=== PATIENT | male | born 1955 ===

== ENCOUNTER 2019-10-28 18:43 | Inpatient (IN) ==
[2019-10-28] MEDS ORDERED: ALBUTEROL 2.5 MG/3 ML NEB RESP TX PRN (22:57)
[2019-10-28] MEDS ORDERED: ACETAMINOPHEN 325 MG TABLET PO PRN (22:57)
[2019-10-28] MEDS ORDERED: GLUCAGON 1 MG VIAL IM PRN (23:05)
[2019-10-28 23:11] LABS: ABG Base Excess 3.7 MMOL/L (-2.5-2.5); ABG HCO3 25.9 MMOL/L (20-26); ABG Oxygen Saturation 96.7 % (95-100); ABG PCO2 29.7 MM HG (35-48); ABG PH 7.558 (7.35-7.45); ABG PO2 81.7 MM HG (80-95); ABG TCO2 26.8 MMOL/L (23-27)
[2019-10-28 23:21] LABS: Basophils % 0.1 % (0.0-0.8); Hematocrit 23.1 VOL% (42.0-52.0); Hemoglobin 7.6 GM/DL (14.0-18.0); Immature Granulocytes % 0.2 %; Immature Granulocytes Absolute 0.02 #; Lymphocytes # 1.3 10*3/uL (1.4-4.0); Lymphocytes % 15.1 % (21.2-54.2); Mean Corpuscular HGB Conc 32.9 GM/DL (32-36); Mean Corpuscular Volume 85.9 FL (87-102); Mean Platelet Volume 10.3 FL (9.6-12.0); Monocytes % 5.9 % (1.7-12.7); Neutrophils % 78.7 % (38.7-73.9); Platelet Count 217 T/CUMM (130-400); Red Blood Count 2.69 MC/CUMM (3.8-5.5); Red Cell Distribution Width 16.9 % (9.3-17.3); White Blood Count 8.3 T/CUMM (4-12)
[2019-10-28 23:44] LABS: Alanine Aminotransferase 17 U/L (16-61); Albumin 1.6 G/DL (3.4-5.0); Alkaline Phosphatase 83 U/L (45-117); Aspartate Amino Transferase 35 U/L (0-37); Bilirubin,Total < 0.39 MG/DL (0.2-1.0); Blood Urea Nitrogen 15 MG/DL (7-18); Calcium 8.3 MG/DL (8.5-10.1); Estimated Glom Filtration Rate 21 ML/MIN; Glucose 131 MG/DL (74-106); Osmolality,Calculated 277.7 MOS/KG (273-304); Total Protein 5.8 G/DL (6.4-8.3)
[2019-10-28 23:45] LABS: Apearance,Urine CLOUDY (Clear); Bacteria,Urine Moderate /HPF (Few); Bilirubin,Urine Negative (Negative); Blood, Urine Small mg/dL (Negative); Glucose,Urine (UA) 150 mg/dL (Negative); Granular Casts,Urine 14 /LPF (0-1); Hyaline Casts,Urine 42 /LPF (0-3); Ketones,Urine Negative (Negative); Mucus,Urine Occasional /LPF (Occasional); Nitrite,Urine Negative (Negative); Protein,Urine >=500 MG/DL; RBC,Urine 28 /HPF (0-4); Squamous Epithelial Cell,Urine Occasional /HPF (0-10); Urine Color Amber (Yellow); Urine Specific Gravity 1.034 (1.001-1.035); Urine Urobilinogen < 2.0 EU/DL (0.2-1.0); WBC,Urine 67 /HPF (0-6)
[2019-10-28 23:46] LABS: CKMB % 8.4 %
[2019-10-28 23:47] LABS: Troponin I 0.131 NG/ML (0.00-0.045)
[2019-10-29] MEDS: fentaNYL INJ 1,250 MCG in SODIUM CHLORIDE 0.9% 225 ML IV PRN ×4 (00:32→23:01)
[2019-10-29 00:40] LABS: INR 1.2; Partial Thromboplastin Time 31.9 SECS (23.9-33.8)
[2019-10-29] MEDS: MIDAZOLAM 100 MG in SODIUM CHLORIDE 0.9% 80 ML IV PRN (00:43)
[2019-10-29] MEDS: DOPamine 800 MG/250 ML PREMIX IV SCH ×3 (00:44→22:58)
[2019-10-29] MEDS: ENOXAPARIN 30 MG/0.3 ML SYRINGE SUBCUT SCH ×2 (01:22→20:28)
[2019-10-29] MEDS: PANTOPRAZOLE 40 MG VIAL IV SCH ×2 (01:23→23:23)
[2019-10-29] MEDS ORDERED: INSULIN REGULAR 100 UNIT/ML SUBCUT SCH ×2 (02:00)
[2019-10-29] MEDS: CISATRACURIUM 10 MG/5 ML VIAL IV PRN ×2 (02:41→20:33)
[2019-10-29 04:47] LABS: ABG Base Excess 4.7 MMOL/L (-2.5-2.5); ABG HCO3 25.1 MMOL/L (20-26); ABG Oxygen Saturation 98.6 % (95-100); ABG PCO2 22.5 MM HG (35-48); ABG PO2 108.3 MM HG (80-95); ABG TCO2 25.8 MMOL/L (23-27)
[2019-10-29 04:49] LABS: ABG PH 7.665 (7.35-7.45)
[2019-10-29] MEDS: INSULIN REGULAR 100 UNIT/ML IV SCH ×3 (04:49→20:27)
[2019-10-29] MEDS: MINERAL OIL/PETROLATUM OPH OINT 3.5 GM TUBE BOTH EYES SCH ×4 (04:57→20:33)
[2019-10-29 05:51] LABS: Calcium 7.9 MG/DL (8.5-10.1); Osmolality,Calculated 277.5 MOS/KG (273-304)
[2019-10-29 05:56] LABS: Basophils % 0.1 % (0.0-0.8); Hemoglobin 7.3 GM/DL (14.0-18.0); Immature Granulocytes % 0.3 %; Immature Granulocytes Absolute 0.03 #; Lymphocytes # 1.6 10*3/uL (1.4-4.0); Lymphocytes % 17.5 % (21.2-54.2); Mean Corpuscular HGB Conc 33.2 GM/DL (32-36); Mean Platelet Volume 10.8 FL (9.6-12.0); Monocytes % 6.2 % (1.7-12.7); Neutrophils % 75.9 % (38.7-73.9); Platelet Count 191 T/CUMM (130-400); Red Blood Count 2.53 MC/CUMM (3.8-5.5); Red Cell Distribution Width 16.8 % (9.3-17.3); White Blood Count 8.9 T/CUMM (4-12)
[2019-10-29 06:22] LABS: Band Neutrophils 1 % (0-10); Hypochromasia 2+; Lymphocytes 13 % (20-55); Microcytosis 1+; Ovalocytes Slight; Platelet Estimate Adequate; Segmented Neutrophils 82 % (50-85); Total Cells Counted 100
[2019-10-29 06:37] LABS: INR 1.3; PT Patient Result 13.5 SECS (9.8-11.9); Partial Thromboplastin Time 34.7 SECS (23.9-33.8)
[2019-10-29 06:47] LABS: CKMB % 10.1 %
[2019-10-29 06:48] LABS: Troponin I 0.107 NG/ML (0.00-0.045)
[2019-10-29] MEDS: PIPERACILLIN/TAZOBACTAM 3,375 MG in SODIUM CHLORIDE 0.9% 100 ML IV SCH ×2 (08:54→18:34)
[2019-10-29 11:32] LABS: Basophils % 0.1 % (0.0-0.8); Eosinophils % 0.1 % (0.00-10.9); Hematocrit 19.6 VOL% (42.0-52.0); Hemoglobin 6.5 GM/DL (14.0-18.0); Immature Granulocytes % 0.7 %; Immature Granulocytes Absolute 0.06 #; Lymphocytes # 2.2 10*3/uL (1.4-4.0); Lymphocytes % 25.8 % (21.2-54.2); Mean Corpuscular HGB Conc 33.2 GM/DL (32-36); Mean Platelet Volume 10.3 FL (9.6-12.0); Monocytes % 4.9 % (1.7-12.7); Neutrophils % 68.4 % (38.7-73.9); Platelet Count 162 T/CUMM (130-400); Red Blood Count 2.28 MC/CUMM (3.8-5.5); Red Cell Distribution Width 16.9 % (9.3-17.3); White Blood Count 8.4 T/CUMM (4-12)
[2019-10-29 11:48] LABS: INR 1.3; PT Patient Result 13.5 SECS (9.8-11.9); Partial Thromboplastin Time 33.6 SECS (23.9-33.8)
[2019-10-29 11:55] LABS: CKMB % 10.8 %
[2019-10-29 11:59] LABS: Troponin I 0.087 NG/ML (0.00-0.045)
[2019-10-29 12:04] LABS: Calcium 7.7 MG/DL (8.5-10.1); Osmolality,Calculated 276.4 MOS/KG (273-304)
[2019-10-29] MEDS: DEXTROSE 50% 25 GM/50 ML VIAL IV PRN ×2 (12:13→16:03)
[2019-10-29] MEDS: INSULIN REGULAR 100 UNIT/ML SUBCUT SCH ×2 (12:20→16:02)
[2019-10-29 12:38] LABS: Band Neutrophils 2 % (0-10); Hypochromasia 2+; Lymphocytes 25 % (20-55); Microcytosis 1+; Platelet Estimate Adequate; Segmented Neutrophils 72 % (50-85); Total Cells Counted 100
[2019-10-29] MEDS ORDERED: MAGNESIUM SULF RIDER 4 GM in PREMIX 1 EACH IV ONE (12:59)
[2019-10-29] MEDS: MAGNESIUM SULF RIDER 2 GM in PREMIX 1 EACH IV SCH ×2 (14:02→15:42)
[2019-10-29 14:08] LABS: Hepatitis B Core IgM Quant 0.21 Index; Hepatitis B Surface Ag Quant 0.44 Index; Hepatitis B Surface Ag Result Negative (Negative); Hepatitis C Virus Ab Quant 0.09 Index; Hepatitis C Virus Ab Result Negative (Negative)
[2019-10-29] MEDS: POTASSIUM CHLORIDE RIDER 20 MEQ in PREMIX 1 EACH IV SCH ×3 (14:41→18:33)
[2019-10-29 17:18] LABS: Basophils % 0.2 % (0.0-0.8); Eosinophils % 0.2 % (0.00-10.9); Hematocrit 23.6 VOL% (42.0-52.0); Hemoglobin 7.7 GM/DL (14.0-18.0); Immature Granulocytes % 0.6 %; Immature Granulocytes Absolute 0.08 #; Lymphocytes # 2.3 10*3/uL (1.4-4.0); Mean Corpuscular HGB Conc 32.6 GM/DL (32-36); Mean Corpuscular Volume 86.1 FL (87-102); Mean Platelet Volume 10.4 FL (9.6-12.0); Monocytes % 3.4 % (1.7-12.7); Neutrophils % 79.6 % (38.7-73.9); Platelet Count 213 T/CUMM (130-400); Red Blood Count 2.74 MC/CUMM (3.8-5.5); Red Cell Distribution Width 17.4 % (9.3-17.3); White Blood Count 14.5 T/CUMM (4-12)
[2019-10-29] MEDS: HYDROCORTISONE 100 MG VIAL IV SCH ×2 (17:27→23:25)
[2019-10-29] MEDS: DEXTROSE 10% 500 ML IV SCH (17:27)
[2019-10-29 17:30] LABS: INR 1.3; PT Patient Result 13.7 SECS (9.8-11.9); Partial Thromboplastin Time 35.9 SECS (23.9-33.8)
[2019-10-29 17:45] LABS: CKMB % 11.8 %
[2019-10-29 17:50] LABS: Osmolality,Calculated 278.5 MOS/KG (273-304)
[2019-10-29 18:44] LABS: Hypochromasia 2+; Lymphocytes 15 % (20-55); Segmented Neutrophils 84 % (50-85); Total Cells Counted 100
[2019-10-29 18:45] LABS: Macrocytosis 1+; Platelet Estimate Adequate; Polychromasia 1+
[2019-10-29 22:58] LABS: Basophils % 0.1 % (0.0-0.8); Eosinophils % 0.1 % (0.00-10.9); Hemoglobin 8.3 GM/DL (14.0-18.0); Immature Granulocytes % 0.4 %; Immature Granulocytes Absolute 0.07 #; Lymphocytes # 1.2 10*3/uL (1.4-4.0); Lymphocytes % 7.9 % (21.2-54.2); Mean Corpuscular HGB Conc 33.2 GM/DL (32-36); Mean Corpuscular Volume 85.3 FL (87-102); Mean Platelet Volume 10.5 FL (9.6-12.0); Monocytes % 1.8 % (1.7-12.7); Neutrophils % 89.7 % (38.7-73.9); Platelet Count 225 T/CUMM (130-400); Red Blood Count 2.93 MC/CUMM (3.8-5.5); Red Cell Distribution Width 17.4 % (9.3-17.3); White Blood Count 15.8 T/CUMM (4-12)
[2019-10-29 23:09] LABS: INR 1.3; PT Patient Result 13.7 SECS (9.8-11.9); Partial Thromboplastin Time 36.5 SECS (23.9-33.8)
[2019-10-29 23:19] LABS: Calcium 8.1 MG/DL (8.5-10.1); Osmolality,Calculated 274.8 MOS/KG (273-304)
[2019-10-29 23:33] LABS: CKMB % 11.4 %
[2019-10-29 23:34] LABS: Troponin I 0.243 NG/ML (0.00-0.045)
[2019-10-30] MEDS: INSULIN REGULAR 100 UNIT/ML IV SCH ×6 (00:32→11:59)
[2019-10-30] MEDS: DEXTROSE 10% 500 ML IV SCH ×2 (03:17→13:31)
[2019-10-30 04:42] LABS: ABG Base Excess 2.4 MMOL/L (-2.5-2.5); ABG HCO3 24.4 MMOL/L (20-26); ABG Oxygen Saturation 98.4 % (95-100); ABG PCO2 27.9 MM HG (35-48); ABG PH 7.559 (7.35-7.45); ABG PO2 114.1 MM HG (80-95); ABG TCO2 25.2 MMOL/L (23-27)
[2019-10-30 05:04] LABS: Basophils % 0.1 % (0.0-0.8); Hematocrit 23.4 VOL% (42.0-52.0); Immature Granulocytes % 0.6 %; Immature Granulocytes Absolute 0.09 #; Lymphocytes # 1.4 10*3/uL (1.4-4.0); Lymphocytes % 8.9 % (21.2-54.2); Mean Corpuscular HGB Conc 34.2 GM/DL (32-36); Mean Corpuscular Volume 83.9 FL (87-102); Mean Platelet Volume 10.7 FL (9.6-12.0); Monocytes % 1.3 % (1.7-12.7); Neutrophils % 89.1 % (38.7-73.9); Platelet Count 216 T/CUMM (130-400); Red Blood Count 2.79 MC/CUMM (3.8-5.5); Red Cell Distribution Width 17.5 % (9.3-17.3)
[2019-10-30 05:12] LABS: Troponin I 0.18 NG/ML (0.00-0.045)
[2019-10-30 05:22] LABS: INR 1.3; PT Patient Result 13.5 SECS (9.8-11.9); Partial Thromboplastin Time 39.2 SECS (23.9-33.8)
[2019-10-30] MEDS: fentaNYL INJ 1,250 MCG in SODIUM CHLORIDE 0.9% 225 ML IV PRN ×2 (05:50→12:46)
[2019-10-30] MEDS: HYDROCORTISONE 100 MG VIAL IV SCH ×4 (06:37→23:46)
[2019-10-30] MEDS: PIPERACILLIN/TAZOBACTAM 3,375 MG in SODIUM CHLORIDE 0.9% 100 ML IV SCH ×2 (08:43→20:43)
[2019-10-30] MEDS: MINERAL OIL/PETROLATUM OPH OINT 3.5 GM TUBE BOTH EYES SCH ×3 (08:44→20:44)
[2019-10-30] MEDS: MIDAZOLAM 100 MG in SODIUM CHLORIDE 0.9% 80 ML IV PRN (09:55)
[2019-10-30] MEDS ORDERED: HEPARIN 10,000 UNIT/10 ML VIAL IV SCH (10:00)
[2019-10-30 11:25] LABS: Basophils % 0.1 % (0.0-0.8); Hemoglobin 8.4 GM/DL (14.0-18.0); Immature Granulocytes % 1.1 %; Immature Granulocytes Absolute 0.22 #; Lymphocytes # 1.7 10*3/uL (1.4-4.0); Lymphocytes % 8.4 % (21.2-54.2); Mean Corpuscular HGB Conc 33.6 GM/DL (32-36); Mean Platelet Volume 10.4 FL (9.6-12.0); Monocytes % 3.3 % (1.7-12.7); Neutrophils % 87.1 % (38.7-73.9); Platelet Count 245 T/CUMM (130-400); Red Blood Count 2.94 MC/CUMM (3.8-5.5); Red Cell Distribution Width 17.7 % (9.3-17.3); White Blood Count 20.5 T/CUMM (4-12)
[2019-10-30 11:42] LABS: INR 1.2; PT Patient Result 12.3 SECS (9.8-11.9); Partial Thromboplastin Time 35.5 SECS (23.9-33.8)
[2019-10-30 11:44] LABS: Calcium 7.9 MG/DL (8.5-10.1); Osmolality,Calculated 277.5 MOS/KG (273-304)
[2019-10-30 11:53] LABS: Anisocytosis 1+; Eosinophils 1 % (0-10); Hypochromasia 1+; Lymphocytes 6 % (20-55); Segmented Neutrophils 92 % (50-85); Target Cells Slight; Total Cells Counted 100
[2019-10-30 11:54] LABS: Platelet Estimate Normal; Polychromasia Slight
[2019-10-30 13:39] LABS: ABG Base Excess 3.1 MMOL/L (-2.5-2.5); ABG HCO3 26.2 MMOL/L (20-26); ABG PCO2 34.3 MM HG (35-48); ABG PH 7.501 (7.35-7.45); ABG PO2 105.1 MM HG (80-95); ABG TCO2 27.3 MMOL/L (23-27); Basophils % 0.1 % (0.0-0.8); Hematocrit 21.9 VOL% (42.0-52.0); Hemoglobin 7.4 GM/DL (14.0-18.0); Immature Granulocytes % 0.9 %; Immature Granulocytes Absolute 0.17 #; Lymphocytes # 1.5 10*3/uL (1.4-4.0); Lymphocytes % 8.4 % (21.2-54.2); Mean Corpuscular HGB Conc 33.8 GM/DL (32-36); Mean Corpuscular Volume 85.2 FL (87-102); Neutrophils % 88.6 % (38.7-73.9); Platelet Count 211 T/CUMM (130-400); Red Blood Count 2.57 MC/CUMM (3.8-5.5); Red Cell Distribution Width 17.6 % (9.3-17.3); White Blood Count 18.1 T/CUMM (4-12)
[2019-10-30 13:51] LABS: INR 1.2; PT Patient Result 13.1 SECS (9.8-11.9); Partial Thromboplastin Time 40.1 SECS (23.9-33.8)
[2019-10-30 13:55] LABS: Alanine Aminotransferase 12 U/L (16-61); Albumin 1.1 G/DL (3.4-5.0); Alkaline Phosphatase 82 U/L (45-117); Aspartate Amino Transferase 45 U/L (0-37); Bilirubin,Total < 0.39 MG/DL (0.2-1.0); Blood Urea Nitrogen 9 MG/DL (7-18); Calcium 7.7 MG/DL (8.5-10.1); Estimated Glom Filtration Rate 34 ML/MIN; Glucose 172 MG/DL (74-106); Osmolality,Calculated 275.8 MOS/KG (273-304)
[2019-10-30 13:57] LABS: Troponin I 0.149 NG/ML (0.00-0.045)
[2019-10-30] MEDS: INSULIN REGULAR 100 UNIT/ML SUBCUT SCH ×2 (16:34→20:42)
[2019-10-30 17:37] LABS: Band Neutrophils 3 % (0-10); Lymphocytes 9 % (20-55); Platelet Estimate Adequate; Segmented Neutrophils 87 % (50-85); Total Cells Counted 100
[2019-10-30 17:38] LABS: Apearance,Urine CLOUDY (Clear); Bacteria,Urine Many /HPF (Few); Bilirubin,Urine Negative (Negative); Blood, Urine Moderate mg/dL (Negative); Glucose,Urine (UA) 150 mg/dL (Negative); Hyaline Casts,Urine 161 /LPF (0-3); Ketones,Urine Negative (Negative); Mucus,Urine Few /LPF (Occasional); Nitrite,Urine Negative (Negative); Protein,Urine >=500 MG/DL; RBC,Urine 14 /HPF (0-4); Urine Color Amber (Yellow); Urine Specific Gravity 1.033 (1.001-1.035); Urine Urobilinogen < 2.0 EU/DL (0.2-1.0); WBC,Urine 97 /HPF (0-6)
[2019-10-30 17:47] LABS: Basophils % 0.1 % (0.0-0.8); Hematocrit 20.7 VOL% (42.0-52.0); Hemoglobin 6.9 GM/DL (14.0-18.0); Immature Granulocytes % 0.9 %; Immature Granulocytes Absolute 0.15 #; Lymphocytes # 1.6 10*3/uL (1.4-4.0); Lymphocytes % 9.5 % (21.2-54.2); Mean Corpuscular HGB Conc 33.3 GM/DL (32-36); Mean Corpuscular Volume 84.8 FL (87-102); Mean Platelet Volume 10.7 FL (9.6-12.0); Monocytes % 2.6 % (1.7-12.7); Neutrophils % 86.9 % (38.7-73.9); Platelet Count 215 T/CUMM (130-400); Red Blood Count 2.44 MC/CUMM (3.8-5.5); Red Cell Distribution Width 18.2 % (9.3-17.3); White Blood Count 17.1 T/CUMM (4-12)
[2019-10-30 17:57] LABS: Calcium 7.4 MG/DL (8.5-10.1); Osmolality,Calculated 278.8 MOS/KG (273-304)
[2019-10-30 17:58] LABS: INR 1.2; PT Patient Result 12.4 SECS (9.8-11.9); Partial Thromboplastin Time 37.9 SECS (23.9-33.8)
[2019-10-30] MEDS: ENOXAPARIN 30 MG/0.3 ML SYRINGE SUBCUT SCH (20:43)
[2019-10-30] MEDS: DOPamine 800 MG/250 ML PREMIX IV SCH (22:47)
[2019-10-30] MEDS: PANTOPRAZOLE 40 MG VIAL IV SCH (23:47)
[2019-10-31 00:04] LABS: Calcium 7.7 MG/DL (8.5-10.1); Osmolality,Calculated 281.7 MOS/KG (273-304)
[2019-10-31 00:16] LABS: Basophils % 0.1 % (0.0-0.8); Hemoglobin 6.7 GM/DL (14.0-18.0); Immature Granulocytes % 0.9 %; Immature Granulocytes Absolute 0.16 #; Lymphocytes # 1.7 10*3/uL (1.4-4.0); Lymphocytes % 9.7 % (21.2-54.2); Mean Corpuscular HGB Conc 32.5 GM/DL (32-36); Mean Corpuscular Volume 87.7 FL (87-102); Mean Platelet Volume 11.5 FL (9.6-12.0); Monocytes % 3.5 % (1.7-12.7); Neutrophils % 85.8 % (38.7-73.9); Platelet Count 227 T/CUMM (130-400); Red Blood Count 2.35 MC/CUMM (3.8-5.5); Red Cell Distribution Width 18.4 % (9.3-17.3); White Blood Count 17.4 T/CUMM (4-12)
[2019-10-31 00:17] LABS: Hematocrit 20.6 VOL% (42.0-52.0)
[2019-10-31 00:26] LABS: INR 1.2; PT Patient Result 12.4 SECS (9.8-11.9)
[2019-10-31 00:27] LABS: Partial Thromboplastin Time 41.3 SECS (23.9-33.8)
[2019-10-31] MEDS: INSULIN REGULAR 100 UNIT/ML SUBCUT SCH ×6 (01:17→20:45)
[2019-10-31] MEDS: DEXTROSE 10% 500 ML IV SCH ×2 (03:20→10:46)
[2019-10-31 05:21] LABS: ABG Base Excess 4.1 MMOL/L (-2.5-2.5); ABG HCO3 28.1 MMOL/L (20-26); ABG PH 7.492 (7.35-7.45); ABG TCO2 26.3 MMOL/L (23-27)
[2019-10-31 05:24] LABS: Basophils % 0.1 % (0.0-0.8); Hematocrit 27.3 VOL% (42.0-52.0); Hemoglobin 8.9 GM/DL (14.0-18.0); Immature Granulocytes % 1.1 %; Immature Granulocytes Absolute 0.14 #; Lymphocytes # 1.3 10*3/uL (1.4-4.0); Lymphocytes % 10.1 % (21.2-54.2); Mean Corpuscular HGB Conc 32.6 GM/DL (32-36); Mean Corpuscular Volume 86.9 FL (87-102); Mean Platelet Volume 10.5 FL (9.6-12.0); Monocytes % 2.9 % (1.7-12.7); Neutrophils % 85.8 % (38.7-73.9); Red Cell Distribution Width 18.5 % (9.3-17.3); White Blood Count 13.1 T/CUMM (4-12)
[2019-10-31 05:31] LABS: Platelet Count 169 T/CUMM (130-400); Red Blood Count 3.14 MC/CUMM (3.8-5.5)
[2019-10-31 05:41] LABS: INR 1.1; PT Patient Result 11.4 SECS (9.8-11.9); Partial Thromboplastin Time 37.7 SECS (23.9-33.8)
[2019-10-31 05:47] LABS: Alanine Aminotransferase 9 U/L (16-61); Albumin 1.1 G/DL (3.4-5.0); Alkaline Phosphatase 76 U/L (45-117); Aspartate Amino Transferase 55 U/L (0-37); Bilirubin,Total < 0.39 MG/DL (0.2-1.0); Blood Urea Nitrogen 18 MG/DL (7-18); Calcium 7.3 MG/DL (8.5-10.1); Estimated Glom Filtration Rate 23 ML/MIN; Glucose 229 MG/DL (74-106); Osmolality,Calculated 283.7 MOS/KG (273-304); Total Protein 4.6 G/DL (6.4-8.3)
[2019-10-31 05:48] LABS: Troponin I 0.159 NG/ML (0.00-0.045)
[2019-10-31] MEDS: HYDROCORTISONE 100 MG VIAL IV SCH ×4 (06:06→22:37)
[2019-10-31] MEDS: PIPERACILLIN/TAZOBACTAM 3,375 MG in SODIUM CHLORIDE 0.9% 100 ML IV SCH ×2 (08:03→20:44)
[2019-10-31] MEDS: MINERAL OIL/PETROLATUM OPH OINT 3.5 GM TUBE BOTH EYES SCH ×3 (10:27→20:45)
[2019-10-31] MEDS: hydrALAZINE 20 MG/1 ML VIAL IV PRN (18:11)
[2019-10-31] MEDS: ENOXAPARIN 30 MG/0.3 ML SYRINGE SUBCUT SCH (20:45)
[2019-10-31] MEDS: DOPamine 800 MG/250 ML PREMIX IV SCH (22:25)
[2019-10-31] MEDS: PANTOPRAZOLE 40 MG VIAL IV SCH (22:35)
[2019-11-01] MEDS: INSULIN REGULAR 100 UNIT/ML SUBCUT SCH ×6 (00:27→20:20)
[2019-11-01] MEDS: HYDROCORTISONE 100 MG VIAL IV SCH ×3 (05:45→22:20)
[2019-11-01 06:26] LABS: ABG Base Excess 3.5 MMOL/L (-2.5-2.5); ABG HCO3 27.6 MMOL/L (20-26); ABG Oxygen Saturation 99.6 % (95-100); ABG PCO2 38.8 MM HG (35-48); ABG PH 7.459 (7.35-7.45); ABG TCO2 26.2 MMOL/L (23-27)
[2019-11-01 06:32] LABS: Basophils % 0.1 % (0.0-0.8); Hematocrit 19.4 VOL% (42.0-52.0); Hemoglobin 6.5 GM/DL (14.0-18.0); Immature Granulocytes % 1.5 %; Immature Granulocytes Absolute 0.27 #; Lymphocytes # 1.8 10*3/uL (1.4-4.0); Lymphocytes % 9.7 % (21.2-54.2); Mean Corpuscular HGB Conc 33.5 GM/DL (32-36); Mean Corpuscular Volume 88.2 FL (87-102); Mean Platelet Volume 11.5 FL (9.6-12.0); Monocytes % 3.1 % (1.7-12.7); Neutrophils % 85.6 % (38.7-73.9); Platelet Count 208 T/CUMM (130-400)
[2019-11-01 06:40] LABS: PT Patient Result 10.4 SECS (9.8-11.9); Partial Thromboplastin Time 31.4 SECS (23.9-33.8)
[2019-11-01 06:54] LABS: Alanine Aminotransferase 9 U/L (16-61); Albumin 1.2 G/DL (3.4-5.0); Alkaline Phosphatase 99 U/L (45-117); Aspartate Amino Transferase 65 U/L (0-37); Bilirubin,Total < 0.39 MG/DL (0.2-1.0); Blood Urea Nitrogen 32 MG/DL (7-18); Calcium 7.9 MG/DL (8.5-10.1); Estimated Glom Filtration Rate 18 ML/MIN; Glucose 199 MG/DL (74-106); Total Protein 5.4 G/DL (6.4-8.3)
[2019-11-01] MEDS: PIPERACILLIN/TAZOBACTAM 3,375 MG in SODIUM CHLORIDE 0.9% 100 ML IV SCH ×2 (07:35→20:18)
[2019-11-01] MEDS: MINERAL OIL/PETROLATUM OPH OINT 3.5 GM TUBE BOTH EYES SCH ×3 (08:38→20:19)
[2019-11-01] MEDS: hydrALAZINE 20 MG/1 ML VIAL IV PRN ×2 (13:51)
[2019-11-01] MEDS: ENOXAPARIN 30 MG/0.3 ML SYRINGE SUBCUT SCH (20:18)
[2019-11-01] MEDS: PANTOPRAZOLE 40 MG VIAL IV SCH (22:18)
[2019-11-01] MEDS: DOPamine 800 MG/250 ML PREMIX IV SCH (22:21)
[2019-11-02] MEDS: INSULIN REGULAR 100 UNIT/ML SUBCUT SCH ×5 (01:02→18:16)
[2019-11-02 03:48] LABS: Basophils % 0.1 % (0.0-0.8); Hematocrit 19.8 VOL% (42.0-52.0); Immature Granulocytes % 0.8 %; Lymphocytes # 1.6 10*3/uL (1.4-4.0); Lymphocytes % 12.8 % (21.2-54.2); Mean Corpuscular HGB Conc 31.3 GM/DL (32-36); Mean Corpuscular Volume 89.6 FL (87-102); Mean Platelet Volume 11.6 FL (9.6-12.0); Monocytes % 3.6 % (1.7-12.7); Neutrophils % 82.7 % (38.7-73.9); Platelet Count 208 T/CUMM (130-400); Red Blood Count 2.21 MC/CUMM (3.8-5.5); White Blood Count 12.2 T/CUMM (4-12)
[2019-11-02 03:53] LABS: Hemoglobin 6.2 GM/DL (14.0-18.0)
[2019-11-02 03:59] LABS: PT Patient Result 10.9 SECS (9.8-11.9); Partial Thromboplastin Time 30.1 SECS (23.9-33.8)
[2019-11-02 04:12] LABS: Alanine Aminotransferase 12 U/L (16-61); Albumin 1.2 G/DL (3.4-5.0); Alkaline Phosphatase 109 U/L (45-117); Aspartate Amino Transferase 64 U/L (0-37); Bilirubin,Total < 0.39 MG/DL (0.2-1.0); Blood Urea Nitrogen 30 MG/DL (7-18); Calcium 7.8 MG/DL (8.5-10.1); Estimated Glom Filtration Rate 23 ML/MIN; Glucose 211 MG/DL (74-106); Osmolality,Calculated 286.7 MOS/KG (273-304); Total Protein 5.2 G/DL (6.4-8.3)
[2019-11-02 04:16] LABS: Troponin I 0.189 NG/ML (0.00-0.045)
[2019-11-02] MEDS: HYDROCORTISONE 100 MG VIAL IV SCH ×2 (06:34→18:17)
[2019-11-02] MEDS: PIPERACILLIN/TAZOBACTAM 3,375 MG in SODIUM CHLORIDE 0.9% 100 ML IV SCH (06:38)
[2019-11-02 07:43] LABS: ABG Base Excess 5.5 MMOL/L (-2.5-2.5); ABG HCO3 29.4 MMOL/L (20-26); ABG PCO2 33.1 MM HG (35-48); ABG TCO2 26.9 MMOL/L (23-27)
[2019-11-02] MEDS: hydrALAZINE 25 MG TABLET PER TUBE SCH ×2 (09:42→20:05)
[2019-11-02] MEDS: LOSARTAN 50 MG TABLET PER TUBE SCH (09:42)
[2019-11-02] MEDS: MINERAL OIL/PETROLATUM OPH OINT 3.5 GM TUBE BOTH EYES SCH ×3 (09:42→20:05)
[2019-11-02] MEDS: ASPIRIN CHEW 81 MG TABLET PO SCH (09:42)
[2019-11-02] MEDS ORDERED: POTASSIUM PHOSPHATE 30 MMOL in SODIUM CHLORIDE 0.9% 250 ML IV ONE (12:00)
[2019-11-02] MEDS: ceFAZolin 1,000 MG in SYRINGE 1 EACH IV SCH (16:30)
[2019-11-02] MEDS: carvediloL 25 MG TABLET PER TUBE SCH (16:30)
[2019-11-02] MEDS: ENOXAPARIN 30 MG/0.3 ML SYRINGE SUBCUT SCH (20:05)
[2019-11-02] MEDS: DOPamine 800 MG/250 ML PREMIX IV SCH (22:02)
[2019-11-02] MEDS: PANTOPRAZOLE 40 MG VIAL IV SCH (22:05)
[2019-11-02] MEDS: hydrALAZINE 20 MG/1 ML VIAL IV PRN (23:35)
[2019-11-03] MEDS: INSULIN REGULAR 100 UNIT/ML SUBCUT SCH ×4 (00:08→17:32)
[2019-11-03 04:04] LABS: Eosinophils % 0.2 % (0.00-10.9); Hematocrit 24.5 VOL% (42.0-52.0); Hemoglobin 8.1 GM/DL (14.0-18.0); Immature Granulocytes Absolute 0.09 #; Lymphocytes # 1.9 10*3/uL (1.4-4.0); Lymphocytes % 21.8 % (21.2-54.2); Mean Corpuscular HGB Conc 33.1 GM/DL (32-36); Mean Corpuscular Volume 87.8 FL (87-102); Mean Platelet Volume 10.9 FL (9.6-12.0); Monocytes % 6.7 % (1.7-12.7); Neutrophils % 70.3 % (38.7-73.9); Platelet Count 186 T/CUMM (130-400); Red Blood Count 2.79 MC/CUMM (3.8-5.5); Red Cell Distribution Width 16.7 % (9.3-17.3); White Blood Count 8.8 T/CUMM (4-12)
[2019-11-03 04:30] LABS: Calcium 7.5 MG/DL (8.5-10.1); Osmolality,Calculated 298.4 MOS/KG (273-304)
[2019-11-03] MEDS: HYDROCORTISONE 100 MG VIAL IV SCH ×2 (05:54→17:27)
[2019-11-03 07:15] LABS: ABG Base Excess 3.1 MMOL/L (-2.5-2.5); ABG HCO3 27.3 MMOL/L (20-26); ABG Oxygen Saturation 99.9 % (95-100); ABG PCO2 36.3 MM HG (35-48); ABG PH 7.475 (7.35-7.45); ABG TCO2 24.9 MMOL/L (23-27); Allen Test Positive; Pt O2 Delivery Device Ventilator
[2019-11-03] MEDS: MINERAL OIL/PETROLATUM OPH OINT 3.5 GM TUBE BOTH EYES SCH ×3 (09:02→21:00)
[2019-11-03] MEDS: LOSARTAN 50 MG TABLET PER TUBE SCH (11:40)
[2019-11-03] MEDS: hydrALAZINE 25 MG TABLET PER TUBE SCH ×2 (11:41→21:00)
[2019-11-03] MEDS: ASPIRIN CHEW 81 MG TABLET PO SCH (11:41)
[2019-11-03] MEDS: carvediloL 25 MG TABLET PER TUBE SCH ×2 (11:41→16:40)
[2019-11-03] MEDS: ceFAZolin 1,000 MG in SYRINGE 1 EACH IV SCH (16:40)
[2019-11-03] MEDS: ENOXAPARIN 30 MG/0.3 ML SYRINGE SUBCUT SCH (21:00)
[2019-11-03] MEDS: DOPamine 800 MG/250 ML PREMIX IV SCH (22:57)
[2019-11-03] MEDS: PANTOPRAZOLE 40 MG VIAL IV SCH (23:56)
[2019-11-04] MEDS: INSULIN REGULAR 100 UNIT/ML SUBCUT SCH ×4 (00:36→18:02)
[2019-11-04 03:31] LABS: ABG HCO3 27.8 MMOL/L (20-26); ABG Oxygen Saturation 98.7 % (95-100); ABG PCO2 38.3 MM HG (35-48); ABG PH 7.478 (7.35-7.45); ABG TCO2 28.9 MMOL/L (23-27); Allen Test Positive; Pt O2 Delivery Device Ventilator
[2019-11-04 05:08] LABS: Calcium 7.8 MG/DL (8.5-10.1); Osmolality,Calculated 290.4 MOS/KG (273-304)
[2019-11-04] MEDS: HYDROCORTISONE 100 MG VIAL IV SCH ×2 (05:57→18:02)
[2019-11-04] MEDS: carvediloL 25 MG TABLET PER TUBE SCH ×2 (08:18→16:49)
[2019-11-04] MEDS: hydrALAZINE 25 MG TABLET PER TUBE SCH ×2 (08:18→20:07)
[2019-11-04] MEDS: LOSARTAN 50 MG TABLET PER TUBE SCH (08:18)
[2019-11-04] MEDS: MINERAL OIL/PETROLATUM OPH OINT 3.5 GM TUBE BOTH EYES SCH ×3 (08:19→20:08)
[2019-11-04] MEDS: ASPIRIN CHEW 81 MG TABLET PO SCH (08:19)
[2019-11-04] MEDS: ceFAZolin 1,000 MG in SYRINGE 1 EACH IV SCH (16:49)
[2019-11-04] MEDS: ENOXAPARIN 30 MG/0.3 ML SYRINGE SUBCUT SCH (20:08)
[2019-11-04] MEDS: DOPamine 800 MG/250 ML PREMIX IV SCH (23:52)
[2019-11-04] MEDS: PANTOPRAZOLE 40 MG VIAL IV SCH (23:53)
[2019-11-05] MEDS: INSULIN REGULAR 100 UNIT/ML SUBCUT SCH ×4 (01:24→17:47)
[2019-11-05 04:18] LABS: ABG HCO3 28.1 MMOL/L (20-26); ABG PCO2 36.7 MM HG (35-48); ABG PH 7.484 (7.35-7.45); ABG TCO2 25.8 MMOL/L (23-27); Allen Test Positive; Pt O2 Delivery Device Ventilator
[2019-11-05] MEDS: HYDROCORTISONE 100 MG VIAL IV SCH ×2 (06:17→17:47)
[2019-11-05 06:42] LABS: Calcium 7.7 MG/DL (8.5-10.1); Osmolality,Calculated 287.7 MOS/KG (273-304)
[2019-11-05] MEDS: carvediloL 25 MG TABLET PER TUBE SCH ×2 (08:05→18:08)
[2019-11-05] MEDS: ASPIRIN CHEW 81 MG TABLET PO SCH (08:05)
[2019-11-05] MEDS: hydrALAZINE 25 MG TABLET PER TUBE SCH ×2 (08:05→20:14)
[2019-11-05] MEDS: MINERAL OIL/PETROLATUM OPH OINT 3.5 GM TUBE BOTH EYES SCH ×3 (08:10→20:13)
[2019-11-05] MEDS: LOSARTAN 50 MG TABLET PER TUBE SCH (08:10)
[2019-11-05] MEDS: hydrALAZINE 20 MG/1 ML VIAL IV PRN (16:00)
[2019-11-05] MEDS: ceFAZolin 1,000 MG in SYRINGE 1 EACH IV SCH (17:47)
[2019-11-05] MEDS: ENOXAPARIN 30 MG/0.3 ML SYRINGE SUBCUT SCH (20:14)
[2019-11-05] MEDS: amLODIPine 5 MG TABLET PO SCH (20:14)
[2019-11-05] MEDS: DOPamine 800 MG/250 ML PREMIX IV SCH (22:52)
[2019-11-05] MEDS: PANTOPRAZOLE 40 MG VIAL IV SCH (22:53)
[2019-11-06] MEDS: INSULIN REGULAR 100 UNIT/ML SUBCUT SCH ×3 (00:23→12:35)
[2019-11-06] MEDS: hydrALAZINE 20 MG/1 ML VIAL IV PRN (01:37)
[2019-11-06 04:37] LABS: ABG Base Excess 2.9 MMOL/L (-2.5-2.5); ABG PCO2 35.6 MM HG (35-48); ABG PH 7.478 (7.35-7.45); ABG TCO2 24.3 MMOL/L (23-27); Allen Test Positive; Pt O2 Delivery Device Ventilator
[2019-11-06 04:39] LABS: Calcium 7.6 MG/DL (8.5-10.1); Osmolality,Calculated 295.5 MOS/KG (273-304)
[2019-11-06] MEDS: HYDROCORTISONE 100 MG VIAL IV SCH (06:07)
[2019-11-06 06:11] VITALS: BP 151/65
[2019-11-06] MEDS: MINERAL OIL/PETROLATUM OPH OINT 3.5 GM TUBE BOTH EYES SCH (08:37)
[2019-11-06] MEDS: hydrALAZINE 25 MG TABLET PER TUBE SCH (08:37)
[2019-11-06] MEDS: ASPIRIN CHEW 81 MG TABLET PO SCH (08:37)
[2019-11-06] MEDS: LOSARTAN 50 MG TABLET PER TUBE SCH (08:37)
[2019-11-06] MEDS: amLODIPine 5 MG TABLET PO SCH (08:37)
[2019-11-06] MEDS ORDERED: MORPHINE 4 MG/1 ML VIAL IV PRN ×2 (14:43→16:45)
[2019-11-06] MEDS ORDERED: LORazepam 2 MG/1 ML VIAL IV PRN (14:43)
[2019-11-06] MEDS: carvediloL 25 MG TABLET PER TUBE SCH (14:58)
[2019-11-06] MEDS: MORPHINE 4 MG/1 ML VIAL IV PRN ×7 (16:38→18:38)
[2019-11-06] MEDS ORDERED: MORPHINE 4 MG/1 ML VIAL ONE (16:48)
[2019-11-06] MEDS ORDERED: predniSONE 20 MG TABLET PO SCH (21:00)
== END 2019-11-06 19:21 | disposition expired | DRG 207 ==
LOC: SUATTDRO 21:56 → N.ICU 21:56
PROVIDERS: ADMIT Family Medicine; ATTEND Internal Medicine